=== PATIENT | male | born 1980 | race American Indian/Alaskan Native ===

== ENCOUNTER 2017-10-18 19:40 | Emergency (ER) | payer OTHER, BC ==
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
--- NOTE | 2017-10-18 22:32 | CT ---
EXAM: CT Head Without Intravenous Contrast CLINICAL HISTORY: 37 years old, male; Pain; Headache; Headache not specified TECHNIQUE: Axial computed tomography images of the head/brain without intravenous contrast. All CT scans at this facility use one or more dose reduction techniques, viz.: automated exposure control; ma/kV adjustment per patient size (including targeted exams where dose is matched to indication; i.e. head); or iterative reconstruction technique. Coronal and sagittal reformatted images were created and reviewed. COMPARISON: No relevant prior studies available. FINDINGS: Brain: No intracranial hemorrhage. No mass. No definite edema. Ventricles: No hydrocephalus. Bones/joints: No acute fracture. Soft tissues: Unremarkable. Sinuses: Scattered minimal mucosal thickening. Tiny LEFT maxillary retention cyst. Mastoid air cells: No mastoid effusion. Orbits: Unremarkable as visualized. IMPRESSION: 1. No definite acute intracranial abnormality. 2. Incidental/non-acute findings are described above.
[2017-10-18 22:39] VITALS: BP 137/82; PULSE 82; RESP 16; O2SAT 100
== END 2017-10-18 22:47 | disposition home or self-care (01) ==
LOC: ED 19:40
DX: R51 Headache (principal); V43.52XA Car driver injured in collision with other type car in traffic accident, initial encounter; Y92.410 Unspecified street and highway as the place of occurrence of the external cause

== ENCOUNTER 2018-11-08 20:36 | Inpatient (IN) | payer BC, OTHER ==
[2018-11-08 20:52] VITALS: BMI 29.0
--- NOTE | 2018-11-08 21:10 | ED PDOC ---
Arrival/HPI - General Chief Complaint: GI Problem Time Seen by Provider: 11/08/18 21:01 - History of Present Illness Narrative History of Present Illness (Text): 11/08/18 23:20 38 y/o male with no significant PMH presents to the ED c/o lower abdominal pain and diarrhea x 1 days. Pain is crampy and relieved temporarily after bowel movements. Diarrhea is non bloody, brown, watery. Associated intermittent chills. Pt has not taken any medication for symptoms. Denies nausea, vomiting, back pain, urinary symptoms, testicular pain or swelling, chest pain, SOB, cough, or any other associated symptoms. Past Medical History - Infectious Disease Hx of Infectious Diseases: None - Psychiatric Hx Substance Use: No - Anesthesia Hx Anesthesia: No Family/Social History - Physician Review Nursing Documentation Reviewed: Yes Family/Social History: No Known Family HX Smoking Status: Never Smoked Hx Alcohol Use: No Hx Substance Use: No Allergies/Home Meds Allergies/Adverse Reactions: Allergies No Known Allergies Allergy (Verified 11/08/18 20:52) Home Medications: Home Meds Medication Instructions Recorded Confirmed No Known Home Med 10/18/17 11/08/18 Review of Systems - Review of Systems Constitutional: Fevers Eyes: Normal. absent: Vision Changes ENT: Normal. absent: Sore Throat, Sinus Congestion Respiratory: Normal. absent: SOB, Cough Cardiovascular: Normal. absent: Chest Pain, Palpitations Gastrointestinal: Abdominal Pain, Diarrhea, Appetite Changes. absent: Nausea, Vomiting Genitourinary Male: Normal. absent: Dysuria, Frequency Musculoskeletal: Normal. absent: Arthralgias, Back Pain, Neck Pain Skin: Normal. absent: Rash Neurological: Normal. absent: Headache, Dizziness Endocrine: Normal Hemo/Lymphatic: Normal Psychiatric: Normal Physical Exam Vital Signs Reviewed: Yes Vital Signs Temp Pulse Resp BP Pulse Ox 11/08/18 20:52 99.3 F 105 H 18 125/84 95 Temperature: Afebrile Blood Pressure: Normal Pulse: Tachycardic Respiratory Rate: Normal Appearance: Positive for: Well-Appearing, Non-Toxic, Comfortable Pain Distress: None Mental Status: Positive for: Alert and Oriented X 3 - Systems Exam Head: Present: Atraumatic, Normocephalic Pupils: Present: PERRL Extroacular Muscles: Present: EOMI Conjunctiva: Present: Normal Mouth: Present: Moist Mucous Membranes Neck: Present: Normal Range of Motion Respiratory/Chest: Present: Clear to Auscultation, Good Air Exchange. No: Respiratory Distress, Accessory Muscle Use Cardiovascular: Present: Regular Rate and Rhythm, Normal S1, S2, Peripheal Pulses Present. No: Murmurs Abdomen: Present: Tenderness (diffuse across lower abdomen, greatest in RLQ), Normal Bowel Sounds, Guarding (RLQ). No: Distention, Peritoneal Signs, Rebound Back: Present: Normal Inspection Upper Extremity: Present: Normal Inspection. No: Cyanosis, Edema Lower Extremity: Present: Normal Inspection. No: Edema Neurological: Present: GCS=15, CN II-XII Intact, Speech Normal Skin: Present: Warm, Dry, Normal Color. No: Rashes Psychiatric: Present: Alert, Oriented x 3, Normal Insight, Normal Concentration Medical Decision Making ED Course and Treatment: Initial Plan: * CBC, CMP * Lipase * Troponin * Coags * CXR * CT Abd/Pelvis with IV contrast * IVF * Pepcid * Toradol Bloodwork reviwed, leukocytosis at 11.4, otherwise unremarkable CXR negative for active disease as read by me CT significant for appendicitis, enterocolitis, umbilical hernia. president sales and marketing to evaluate patient here in ED Patient reports resolution of pain with medications 00:00 Spoke with surgical dental assistant who accepted patient for inpatient admission to med/surg floor with diagnosis of appendicitis on behalf of surgical attending Dr. Leonard. Pt updated with change in disposition. Resting comfortably in stretcher with stable vital signs at this time. - Lab Interpretations Lab Results: 11/08/18 21:29 11/08/18 21:29 Lab Results 11/08/18 21:29: Sodium 139, Potassium 4.0, Chloride 101, Carbon Dioxide 26, Anion Gap 16, BUN 10, Creatinine 1.5, Est GFR ( Amer) > 60, Est GFR (Non- Af Amer) 52, Random Glucose 114 H, Calcium 9.6, Total Bilirubin 0.5, AST 41, ALT 50, Alkaline Phosphatase 77, Lactate Dehydrogenase 478, Total Creatine Kinase 171, Troponin I < 0.01, Total Protein 9.5 H, Albumin 4.8, Globulin 4.7, Albumin/Globulin Ratio 1.0 L, Amylase 81, Lipase 65 11/08/18 21:29: PT 14.7 H, INR 1.32, APTT 32.9 11/08/18 21:29: WBC 11.4 H, RBC 5.54, Hgb 16.3, Hct 47.9, MCV 86.5, MCH 29.4, MCHC 34.0, RDW 12.8, Plt Count 241, MPV 9.6, Neut % (Auto) 63.2, Lymph % (Auto) 22.8, [place] % (Auto) 13.7 H, Eos % (Auto) 0.0 L, Baso % (Auto) 0.3, Lymph # (Auto) 2.6, [place] # (Auto) 1.6 H, Eos # (Auto) 0.0, Baso # (Auto) 0.03, Absolute Neuts (auto) 7.19 H I have reviewed the lab results: Yes - RAD Interpretation Narrative RAD Interpretations (Text): 11/09/18 01:49 CT Abd/Pelvis with IV contrast: FINDINGS: LUNG BASES: The lung bases appear clear. No pleural effusions are seen. LIVER: Unremarkable. GALLBLADDER AND BILE DUCTS: The gallbladder is suboptimally visualized due to partial contraction. No radioopaque gallstones are seen. No biliary ductal dilatation is evident. PANCREAS: Unremarkable. SPLEEN: Unremarkable. ADRENAL GLANDS: Unremarkable. KIDNEYS, URETERS, AND BLADDER: The kidneys appear within normal limits. There is no hydronephrosis or hydroureter. No urinary calculi are seen. The urinary bladder appeared normal in size and configuration. STOMACH AND BOWEL: Fluid is identified in the lumen of the lower esophagus which May BE compatible with reflux esophagitis. Mucosal wall thickening is seen within the stomach, duodenum, throughout the entire small intestinal tract, and colon. Additionally, fluid is seen within the lumen of the gastrointestinal tract. These findings are thought compatible with gastritis, duodenitis, diffuse enterocolitis. Infectious or inflammatory etiologies are thought most likely. No evidence of bowel obstruction. APPENDIX: Fluid distention is seen of the appendix measuring up to 1.2 cm transversely. Appendiceal mucosal wall thickening is also identified. Subtle periappendiceal haziness is noted. These findings are compatible with acute appendicitis. PERITONEUM: No free fluid. No free air. A small umbilical hernia is noted which contains fat. LYMPH NODES: No lymphadenopathy is evident. REPRODUCTIVE: Unremarkable as visualized. VASCULATURE: No evidence of abdominal aortic aneurysm. BONES: No aggressive appearing osseous lesion. No acute osseous pathology evident. IMPRESSION: 1. Evidence of acute appendicitis. 2. Evidence of gastritis, duodenitis, diffuse enterocolitis. 3. Reflux of fluid is seen into the lower esophageal lumen. This could be compatible with reflux esophagitis. 4. A small umbilical hernia is present which contains fat. Electronically signed on Nov 08, 2018 11:09:14 PM EDT by: Venancio Fritz M.D., BARBARA Certified By ABR & CBCCT Fellowship Trained MRI and CT Specialist Natural Developer: Radiologist Disposition/Present on Arrival - Present on Arrival Any Indicators Present on Arrival: No History of DVT/PE: No History of Uncontrolled Diabetes: No Urinary Catheter: No History of Decub. Ulcer: No History Surgical Site Infection Following: None - Disposition Have Diagnosis and Disposition been Completed?: Yes Diagnosis: Enterocolitis, Appendicitis Disposition: HOSPITALIZED Disposition Time: 23:30 Patient Plan: Admission Condition: STABLE
[2018-11-08] MEDS ORDERED: Sodium Chloride 0.9% 1,000 ML IV STA (21:12)
[2018-11-08 21:32] LABS: BASO # 0.03 K/mm3 (0.0-2.0); BASO % 0.3 % (0.0-3.0); HEMOGLOBIN 16.3 g/dL (14.0-18.0); LYMPH # 2.6 (1.2-3.4); LYMPH % 22.8 % (22.0-35.0); MEAN CELL VOLUME 86.5 fl (80.0-105.0); MEAN CORPUSCULAR HEMOGLOBIN 29.4 pg (25.0-35.0); MEAN PLATELET VOLUME 9.6 fl (7.0-11.0); MONO # 1.6 (0.1-0.6); MONO % 13.7 % (1.0-6.0); RBC 5.54 10^6/uL (3.5-6.1); RED CELL DISTRIBUTION WIDTH 12.8 % (11.5-14.5); WHITE BLOOD COUNT 11.4 10^3/uL (4.5-11.0)
[2018-11-08 21:42] LABS: ALBUMIN 4.8 g/dL (3.0-4.8); ALT/SGPT 50 U/L (7-56); AMYLASE 81 U/L (35-125); AST/SGOT 41 U/L (17-59); BLOOD UREA NITROGEN 10 mg/dL (7-21); CALCIUM 9.6 mg/dL (8.4-10.5); GFR NON-AFRICAN AMERICAN 52; LIPASE 65 U/L (23-300)
[2018-11-08 21:44] LABS: INR 1.32; PARTIAL THROMBOPLASTIN TIME 32.9 Seconds (26.9-38.3); PROTHROMBIN TIME 14.7 SECONDS (9.4-12.5)
[2018-11-08] MEDS ORDERED: Iohexol 350 MG/100 ML VIAL ONE (21:50)
[2018-11-08 21:53] LABS: TROPONIN I < 0.01 ng/mL
[2018-11-08] MEDS ORDERED: Lactated Ringer's 1,000 ML IV SCH (23:45)
--- NOTE | 2018-11-09 00:05 | CP.PCM.HP ---
Past Patient History - Infectious Disease Hx of Infectious Diseases: None - Past Social History Smoking Status: Never Smoked - PSYCHIATRIC Hx Substance Use: No - SURGICAL HISTORY Hx Surgeries: No - ANESTHESIA Hx Anesthesia: No Meds Allergies/Adverse Reactions: Allergies Allergy/AdvReac Type Severity Reaction Status Date / Time No Known Allergies Allergy Verified 11/08/18 20:52 Results - Vital Signs Recent Vital Signs: Last Vital Signs Temp 99.3 F 11/08/18 20:52 Pulse 105 H 11/08/18 20:52 Resp 18 11/08/18 20:52 BP 125/84 11/08/18 20:52 Pulse Ox 95 11/08/18 20:52 - Labs Result Diagrams: 11/08/18 21:29 11/08/18 21:29 Labs: Laboratory Results - last 24 hr 11/08/18 11/08/18 11/08/18 21:29 21:29 21:29 WBC 11.4 H RBC 5.54 Hgb 16.3 Hct 47.9 MCV 86.5 MCH 29.4 MCHC 34.0 RDW 12.8 Plt Count 241 MPV 9.6 Neut % (Auto) 63.2 Lymph % (Auto) 22.8 [place] % (Auto) 13.7 H Eos % (Auto) 0.0 L Baso % (Auto) 0.3 Lymph # (Auto) 2.6 [place] # (Auto) 1.6 H Eos # (Auto) 0.0 Baso # (Auto) 0.03 Absolute Neuts (auto) 7.19 H PT 14.7 H INR 1.32 APTT 32.9 Sodium 139 Potassium 4.0 Chloride 101 Carbon Dioxide 26 Anion Gap 16 BUN 10 Creatinine 1.5 Est GFR ( Amer) > 60 Est GFR (Non-Af Amer) 52 Random Glucose 114 H Calcium 9.6 Total Bilirubin 0.5 AST 41 ALT 50 Alkaline Phosphatase 77 Lactate Dehydrogenase 478 Total Creatine Kinase 171 Troponin I < 0.01 Total Protein 9.5 H Albumin 4.8 Globulin 4.7 Albumin/Globulin Ratio 1.0 L Amylase 81 Lipase 65
[2018-11-09] MEDS: metroNIDAZOLE IV 500 mg/100 ml 500 MG/100 ML BAG IVPB SCH ×3 (01:00→13:19)
--- NOTE | 2018-11-09 09:10 | RAD ---
Date of service: 11/08/2018 HISTORY: abd pain COMPARISON: No prior. FINDINGS: LUNGS: No active pulmonary disease. PLEURA: No significant pleural effusion identified, no pneumothorax apparent. CARDIOVASCULAR: No aortic atherosclerotic calcification present. Normal cardiac size. No pulmonary vascular congestion. OSSEOUS STRUCTURES: No significant abnormalities. VISUALIZED UPPER ABDOMEN: Normal. OTHER FINDINGS: None. IMPRESSION: No active disease.
[2018-11-09 09:20] VITALS: O2SAT 96
[2018-11-09] MEDS ORDERED: cefTRIAXone 2 GM IN NS 2 GM/100 ML BAG IVPB SCH (10:00)
--- NOTE | 2018-11-09 13:18 | CT ---
Date of service: 11/08/2018 PROCEDURE: CT Abdomen and Pelvis with contrast HISTORY: RLQ abd pain, r/o appendicitis COMPARISON: None. TECHNIQUE: Contrast dose: Radiation dose: Total exam DLP = 687.43 mGy-cm. This CT exam was performed using one or more of the following dose reduction techniques: Automated exposure control, adjustment of the mA and/or kV according to patient size, and/or use of iterative reconstruction technique. FINDINGS: LOWER THORAX: Unremarkable. LIVER: Unremarkable. No gross lesion or ductal dilatation. GALLBLADDER AND BILE DUCTS: Unremarkable. PANCREAS: Unremarkable. No gross lesion or ductal dilatation. SPLEEN: Unremarkable. ADRENALS: Unremarkable. No mass. KIDNEYS AND URETERS: Unremarkable. No hydronephrosis. No solid mass. VASCULATURE: Unremarkable. No aortic aneurysm. No aortic atherosclerotic calcification or mural plaque present. BOWEL: Unremarkable. No obstruction. No gross mural thickening. APPENDIX: Thickened abnormal enhancing appendix consistent with acute appendicitis. PERITONEUM: Unremarkable. No free fluid. No free air. LYMPH NODES: Unremarkable. No enlarged lymph nodes. BLADDER: Unremarkable. REPRODUCTIVE: Unremarkable. BONES: No acute fracture. OTHER FINDINGS: None. IMPRESSION: Thickened abnormal enhancing appendix consistent with acute appendicitis.
[2018-11-09 15:15] VITALS: BP 123/80; PULSE 103; RESP 18
[2018-11-09 19:17] VITALS: TEMP 102.2
--- NOTE | 2018-11-09 20:02 | CP.PCM.DIS ---
Provider - Provider Date of Admission: 11/08/18 23:32 Attending physician: Cathi Leonard MD Primary care physician: NO PRIMARY CARE PROVIDER Time Spent in preparation of Discharge (in minutes): 45 Hospital Course - Lab Results Lab Results: Most Recent Lab Values WBC 11.4 10^3/uL (4.5-11.0) H 11/08/18 21: RBC 5.54 10^6/uL (3.5-6.1) 11/08/18 21: Hgb 16.3 g/dL (14.0-18.0) 11/08/18: Hct 47.9 % (42.0-52.0) 11/08/18: MCV 86.5 fl (80.0-105.0) 11/08/18: MCH 29.4 pg (25.0-35.0) 11/08/18: MCHC 34.0 g/dl (31.0-37.0) 11/08/18: RDW 12.8 % (11.5-14.5) 11/08/18: Plt Count 241 10^3/uL (120.0-450.0) 11/08/18: MPV 9.6 fl (7.0-11.0) 11/08/18: Neut % (Auto) 63.2 % (50.0-68.0) 11/08/18: Lymph % (Auto) 22.8 % (22.0-35.0) 11/08/18: [place] % (Auto) 13.7 % (1.0-6.0) H 11/08/18: Eos % (Auto) 0.0 % (1.5-5.0) L 11/08/18: Baso % (Auto) 0.3 % (0.0-3.0) 11/08/18: Lymph # (Auto) 2.6 (1.2-3.4) 11/08/18: [place] # (Auto) 1.6 (0.1-0.6) H 11/08/18: Eos # (Auto) 0.0 (0.0-0.7) 11/08/18: Baso # (Auto) 0.03 K/mm3 (0.0-2.0) 11/08/18 21: Absolute Neuts (auto) 7.19 (1.4-6.5) H 11/08/18: PT 14.7 SECONDS (9.4-12.5) H 11/08/18 21: INR 1.32 11/08/18: APTT 32.9 Seconds (26.9-38.3) 11/08/18 21: Sodium 139 mmol/L (132-148) 11/08/18 21: Potassium 4.0 mmol/L (3.6-5.0) 11/08/18: Chloride 101 mmol/L (98-107) 11/08/18: Carbon Dioxide 26 mmol/L (21-33) 11/08/18: Anion Gap 16 (10-20) 11/08/18: BUN 10 mg/dL (7-21) 11/08/18: Creatinine 1.5 mg/dl (0.8-1.5) 11/08/18: Est GFR ( Amer) > 60 11/08/18 21: Est GFR (Non-Af Amer) 52 11/08/18: Random Glucose 114 mg/dL (70-110) H 11/08/18: Calcium 9.6 mg/dL (8.4-10.5) 11/08/18: Total Bilirubin 0.5 mg/dL (0.2-1.3) 11/08/18: AST 41 U/L (17-59) 11/08/18 21: ALT 50 U/L (7-56) 11/08/18 21: Alkaline Phosphatase 77 U/L (38-126) 11/08/18: Lactate Dehydrogenase 478 U/L (333-699) 11/08/18: Total Creatine Kinase 171 U/L (35-230) 11/08/18: Troponin I < 0.01 ng/mL 11/08/18: Total Protein 9.5 g/dL (5.8-8.3) H 11/08/18: Albumin 4.8 g/dL (3.0-4.8) 11/08/18 21:29 Globulin 4.7 gm/dL 11/08/18 21:29 Albumin/Globulin Ratio 1.0 (1.1-1.8) L 11/08/18 21:29 Amylase 81 U/L (35-125) 11/08/18 21:29 Lipase 65 U/L (23-300) 11/08/18 21:29 - Hospital Course Hospital Course: Upon presentation to the ER 38 y/o male with no significant PMH presents to the ED c/o lower abdominal pain and diarrhea x 1 days. Pain is crampy and relieved temporarily after bowel movements. Diarrhea is non bloody, brown, watery. Associated intermittent chills. Pt has not taken any medication for symptoms. Denies nausea, vomiting, back pain, urinary symptoms, testicular pain or swelling, chest pain, SOB, cough, or any other associated symptoms. Over the course of his admission the patient's abdominal pain resolved and diarrhea became less and stool more formed. Patient tolerated diet and Bravo score upon discharge was 3 making appendicitis unlikely. Patient was extensively counseled regarding reasons for return to ER for further medical evaluation. Patient was counseled to follow up with his PMD within 3-5 days of discharge and to return to nearest ED if he began having symptoms again or if new concerning symptoms occurred. - Date & Time of H&P Date of H&P: 11/09/18 Time of H&P: 20:09 Discharge Exam - Head Exam Head Exam: ATRAUMATIC, NORMOCEPHALIC - Eye Exam Eye Exam: EOMI - ENT Exam ENT Exam: Mucous Membranes Moist Discharge Plan - Follow Up Plan Condition: STABLE Disposition: HOME/ ROUTINE Additional Instructions: upon discharge please follow up with your primary care physician within 3-5 days If for any reason your symptoms of abdominal pain, nausea, vomiting, fevers recur or any other concerning symptoms arise please return to the nearest ER for further evaluation Patient deemed stable for discharge per Dr. Leonard Referrals: PCP,NO [Primary Care Provider] -
== END 2018-11-09 21:37 | disposition home or self-care (01) | DRG 392 ==
LOC: ED 20:36 → ERH 23:32 → 5RNO 11-09 00:35 → ERH 11-09 00:36 → 5RNO 11-09 01:29
PROVIDERS: ADMIT Specialist; ATTEND Specialist
DX: K52.9 Noninfective gastroenteritis and colitis, unspecified (principal); K35.80 Unspecified acute appendicitis; K29.80 Duodenitis without bleeding; K29.70 Gastritis, unspecified, without bleeding; K21.9 Gastro-esophageal reflux disease without esophagitis; K42.9 Umbilical hernia without obstruction or gangrene